=== PATIENT | female | born 1975 | race Caucasian/White ===

== ENCOUNTER 2018-12-19 14:03 | Emergency (ER) | payer MEDICAID ==
[~2018-12-19] VITALS: Ht 152.4 cm; Wt 79.5 kg
[2018-12-19] MEDS ORDERED: MECLIZINE HCL 25 MG TABLET PO ONE (15:45)
[2018-12-19 17:10] VITALS: BP 121/72
== END 2018-12-19 17:14 | disposition home or self-care (01) ==
LOC: EMS 14:05
DX: R42 Dizziness and giddiness (principal); H92.03 Otalgia, bilateral; R11.2 Nausea with vomiting, unspecified
CPT/HCPCS: 93005

== ENCOUNTER 2021-02-21 17:19 | Emergency (ER) | payer MEDICAID ==
[~2021-02-21] VITALS: Ht 144.8 cm; Wt 77.3 kg
[2021-02-21] MEDS ORDERED: IBUP-1506 PO (17:24)
[2021-02-21] MEDS ORDERED: LORazepam 2 MG/ML VIAL IVP ONE (17:45)
[2021-02-21] MEDS ORDERED: KETOROLAC TROMETHAMINE 30 MG/ML VIAL IVP ONE (17:45)
[2021-02-21] MEDS ORDERED: SODIUM CHLORIDE 0.9% 1,000 ML IV ONE (17:45)
[2021-02-21 18:10] LABS: BASOPHILS % (AUTO) 0.3 % (0.0-2.0); EOSINOPHILS % (AUTO) 1.3 % (1.0-6.0); HEMATOCRIT 40.8 % (36-46); HEMOGLOBIN 13.5 g/dL (12.0-16.0); LYMPHOCYTES # (AUTO) 3.1 K/uL (1.0-4.8); LYMPHOCYTES % (AUTO) 25.9 % (22.0-44.0); MEAN CORPUSCULAR HEMOGLOBIN 30.6 pg (26.0-34.0); MEAN CORPUSCULAR HGB CONC 33.1 G/dL (31.0-37.0); MEAN CORPUSCULAR VOLUME 93 fL (80-100); MONOCYTES % (AUTO) 8.6 % (2.0-9.0); NEUTROPHILS # (AUTO) 7.7 K/uL (1.8-7.7); NEUTROPHILS % (AUTO) 63.9 % (40.0-70.0); PLATELET COUNT (AUTO) 292 K/uL (150-450); RED BLOOD CELL COUNT(AUTO) 4.41 MIL/uL (4.00-5.20); RED CELL DISTRIBUTION WIDTH 12.7 % (11.5-14.5)
[2021-02-21 18:20] LABS: ANION GAP 8 mmol/L (8-16); CALCIUM, TOTAL 8.6 mg/dL (8.8-10.5); CARBON DIOXIDE 29 mmol/L (22-29); CHLORIDE 105 mmol/L (98-107); CREATININE 0.58 mg/dL (0.60-1.30); GLOMERULAR FILTR. RATE CALC > 60 mL/min (>60); GLUCOSE,RANDOM 100 mg/dL (70-110); POTASSIUM 4.1 mmol/L (3.5-5.1); SODIUM SERUM 142 mmol/L (136-145); UREA NITROGEN, BLOOD 10 mg/dL (7-18)
[2021-02-21 18:32] LABS: HCG,QUANTITATIVE < 1 mIU/mL (0-6)
[2021-02-21 19:00] VITALS: BP 147/69
== END 2021-02-21 19:08 | disposition home or self-care (01) ==
LOC: EMS 17:23
DX: G44.209 Tension-type headache, unspecified, not intractable (principal); F41.9 Anxiety disorder, unspecified; Z79.899 Other long term (current) drug therapy
CPT/HCPCS: 36415; 80048; 84702; 85025; 96361; 96374; 96375; 99284; J1885; J2060; J7030